=== PATIENT | female | born 1990 ===

== ENCOUNTER 2021-10-04 07:31 | Emergency (ER) | payer SELFPAY ==
--- NOTE | 2021-10-04 08:25 | Emergency Department Report ---
ED HPI - General Chief complaint: Vaginal Bleeding Stated complaint: VAGINAL BLEEDING Time Seen by Provider: 10/04/21 08:20 Source: patient Mode of arrival: Ambulatory Limitations: No Limitations - History of Present Illness Initial comments: The patient was evaluated in the emergency department for symptoms described in the history of present illness. He/she was evaluated in the context of the global COVID-19 pandemic, which necessitated consideration that the patient might be at risk for infection with the virus that causes COVID-19. In stitutional protocols and algorithms that pertain to the evaluation of patients at risk for COVID-19 are in a state of rapid change based on information released by regulatory bodies including the CDC and federal and state organizations. These policies and algorithms were followed during the patient's care in the emergency department. Please note that these policies, procedures and recommendations changed on a rapid basis. 27-year-old female that is 3 para 1 with 1 presents to the emergency room for vaginal bleeding with 1 pad saturated. She denies any pelvic pain at this time. She has not had her first ultrasound due on October 08. She does not currently have a TOBACCO WRAPPING MACHINE TENDER but has been following a clinic. She denies any fever chills no nausea no vomiting no chest pain or shortness of breath. -: Last night Location: pelvis Severity: moderate Severity scale (0 -10): 0 Consistency: intermittent Improves with: none Worsens with: none Associated symptoms: vaginal bleeding Vaginal bleeding: heavy :: Yes Number of weeks : 10 OB History - Current : no complications OB History - Previous Pregnancies: no complications Pre- care: other (Followed by clinic) - Related Data : 3 Para: 1 Ab: 1 Allergies Allergy/AdvReac Type Severity Reaction Status Date / Time No Known Allergies Allergy Unverified 10/04/21 08:04 ED Review of Systems ROS: Stated complaint: VAGINAL BLEEDING Other details as noted in HPI Comment: All other systems reviewed and negative ED Past Medical Hx - Past Medical History Previous Medical History?: No Additional medical history: denies - Surgical History Past Surgical History?: Yes Additional Surgical History: lasik ED Physical Exam - General Limitations: No Limitations General appearance: alert, in no apparent distress - Head Head exam: Present: atraumatic, normocephalic - Eye Eye exam: Present: normal appearance - ENT ENT exam: Present: mucous membranes moist - Neck Neck exam: Present: normal inspection - Respiratory Respiratory exam: Present: normal lung sounds bilaterally. Absent: respiratory distress - Cardiovascular Cardiovascular Exam: Present: regular rate, normal rhythm. Absent: systolic murmur, diastolic murmur, rubs, gallop - GI/Abdominal GI/Abdominal exam: Present: soft, normal bowel sounds - Extremities Exam Extremities exam: Present: normal inspection - Back Exam Back exam: Present: normal inspection - Neurological Exam Neurological exam: Present: alert, oriented X3 - Psychiatric Psychiatric exam: Present: normal affect, normal mood - Skin Skin exam: Present: warm, dry, intact, normal color. Absent: rash ED Course Vital Signs 10/04/21 10/04/21 08:01 08:19 Temperature 98.2 F Pulse Rate 69 Respiratory 20 18 Rate Blood Pressure 101/43 O2 Sat by Pulse 97 98 Oximetry ED Medical Decision Making - Lab Data Result diagrams: 10/04/21 09:44 Laboratory Tests 10/04/21 10/04/21 10/04/21 09:44 09:44 09:44 WBC 5.8 RBC 4.00 Hgb 12.5 Hct 35.4 MCV 89 MCH 31 MCHC 35 H RDW 12.5 L Plt Count 278 Lymph % (Auto) 34.7 [place] % (Auto) 6.7 Eos % (Auto) 2.3 Baso % (Auto) 0.8 Lymph # (Auto) 2.0 [place] # (Auto) 0.4 Eos # (Auto) 0.1 Baso # (Auto) 0.0 Seg Neutrophils % 55.5 Seg Neutrophils # 3.2 Sodium 138 Potassium 4.2 Chloride 104.4 Carbon Dioxide 23 Anion Gap 15 BUN 6 L Creatinine 0.5 L Estimated GFR > 60 BUN/Creatinine Ratio 12 Glucose 97 Calcium 9.0 Total Bilirubin 0.30 AST 8 ALT 7 Alkaline Phosphatase 59 Total Protein 7.7 Albumin 4.3 Albumin/Globulin Ratio 1.3 HCG, Quant 7252 H Blood Type Ord Rhogam Gestat Weeks 10/04/21 09:44 WBC RBC Hgb Hct MCV MCH MCHC RDW Plt Count Lymph % (Auto) [place] % (Auto) Eos % (Auto) Baso % (Auto) Lymph # (Auto) [place] # (Auto) Eos # (Auto) Baso # (Auto) Seg Neutrophils % Seg Neutrophils # Sodium Potassium Chloride Carbon Dioxide Anion Gap BUN Creatinine Estimated GFR BUN/Creatinine Ratio Glucose Calcium Total Bilirubin AST ALT Alkaline Phosphatase Total Protein Albumin Albumin/Globulin Ratio HCG, Quant Blood Type O POSITIVE Ord Rhogam Gestat Weeks Rh pos - Radiology Data Radiology results: report reviewed Study Comments [facility] [address] [place] [address] Ultrasound Report Signed Patient: JULISA FRANCES MR#: [id number] : 1990 Acct:[id number] Age/Sex: 31 / F ADM Date: 10/04/21 Loc: ED Attending Dr: Ordering Physician: LENA MALHOTRA Date of Service: 10/04/21 Procedure(s): US OB <= 14 weeks fetus Accession Number(s): [id number] cc: LENA MALHOTRA ULTRASOUND OBSTETRIC REASON FOR EXAM: preg w/vag bleeding TECHNIQUE: Transabdominal and transvaginal ultrasound was performed to evaluate a first trimester . COMPARISON: None available. FINDINGS: Uterus measures 9.1 x 5.2 x 7.2 cm. Intrauterine gestational sac with yolk sac and pole. [place]-rump length measures 22 mm, corresponding to a gestational age of 9 weeks and 0 days. However, no heart tones are detected. Small area of perigestational hemorrhage. 2.9 cm simple cyst in the right ovary. No suspicious cystic or solid mass in either adnexa. No significant free fluid. IMPRESSION: Ultrasound findings are diagnostic of failure. Signer Name: Romi Olivares MD Signed: 10/04/2021 9:32 AM Workstation Name: [id number] Transcribed By: MAURICIO Dictated By: ROMI OLIVARES MD Electronically Authenticated By: ROMI OLIVARES MD Signed Date/Time: 10/04/21931 DD/ 8 TD/TT: - Medical Decision Making 27-year-old female that is 3 para 1 with 1 presents to the emergency room for vaginal bleeding with 1 pad saturated. She denies any pelvic pain at this time. She has not had her first ultrasound due on October 08. She does not currently have a TOBACCO WRAPPING MACHINE TENDER but has been following a cl in. She denies any fever chills no nausea no vomiting no chest pain or shortness of breath. Critical care attestation.: If time is entered above; I have spent that time in minutes in the direct care of this critically ill patient, excluding procedure time. ED Disposition Clinical Impression: Miscarriage Disposition: HOME / SELF CARE / HOMELESS Is pt being admited?: No Does the pt Need Aspirin: No Condition: Stable Instructions: Miscarriage, [id number] Additional Instructions: It appears that you had a miscarriage. I recommend to follow-up with an TOBACCO WRAPPING MACHINE TENDER on Thursday to have a repeat labs and ultrasound to be sure that the products does not retain in the uterus and is able to expel. Parece que tuvo un aborto espontneo. Recomiendo hacer un seguimiento con un obstetra / gineclogo el lunes para repetir los laboratorios y el ultrasonido para asegurarse de que los productos para el embarazo no se retengan en el tero y puedan expulsar. Referrals: [facility] [Primary Care Provider] - 3-5 Days [facility] [Provider Group] - 3-5 Days Time of Disposition: 10:42 Print Language: ICELANDIC
--- NOTE | 2021-10-04 09:37 | Ultrasound Report ---
ULTRASOUND OBSTETRIC REASON FOR EXAM: preg w/vag bleeding TECHNIQUE: Transabdominal and transvaginal ultrasound was performed to evaluate a first trimester pre gnancy. COMPARISON: None available. FINDINGS: Uterus measures 9.1 x 5.2 x 7.2 cm. Intrauterine gestational sac with yolk sac and po le. [place]-rump length measures 22 mm, corresponding to a gestational age of 9 weeks and 0 days. Howev er, no heart tones are detected. Small area of perigestational hemorrhage. 2.9 cm simple cyst i n the right ovary. No suspicious cystic or solid mass in either adnexa. No significant free fluid. IMPRESSION: Ultrasound findings are diagnostic of failure. Signer Name: Elder Olivares MD Signed: 10/04/2021 9:32 AM Workstation Name: [id number]
[2021-10-04 10:17] LABS: Basophils % (Auto) 0.8 % (0.0-1.8); Eosinophils # (Auto) 0.1 K/mm3 (0.0-0.4); Eosinophils % (Auto) 2.3 % (0.0-4.3); Hematocrit 35.4 % (30.3-42.9); Hemoglobin 12.5 gm/dl (10.1-14.3); Lymphocytes % (Auto) 34.7 % (13.4-35.0); Mean Corpuscular HGB Conc 35 % (30-34); Mean Corpuscular Volume 89 fl (79-97); Monocytes # (Auto) 0.4 K/mm3 (0.0-0.8); Monocytes % (Auto) 6.7 % (0.0-7.3); Platelet Count 278 K/mm3 (140-440); Red Cell Distribution Width 12.5 % (13.2-15.2)
[2021-10-04 10:20] LABS: Alanine Aminotransferase 7 units/L (7-56); Albumin 4.3 g/dL (3.9-5); Blood Urea Nitrogen 6 mg/dL (7-17); Hemolysis Index 3
[2021-10-04 10:23] LABS: BUN/Creatinine Ratio 12
[2021-10-04 10:54] VITALS: BP 133/94
== END 2021-10-04 10:54 | disposition home or self-care (01) ==
LOC: ED 07:31
DX: O03.9 Complete or unspecified spontaneous abortion without complication (principal); Z3A.10 10 weeks gestation of pregnancy
CPT/HCPCS: 36415; 76801; 76817; 80053; 84702; 85025; 86900; 86901; 99284